=== PATIENT | female | born 1955 | race Caucasian/White ===

== ENCOUNTER → 2024-05-31 | Outpatient (CLI) | payer OTHER ==
[~2024-05-31] MED LIST: AMIO200T68 PO; ASPI-1197 PO; ATOR40TA71 PO; CETI10TA57 PO; CHOL2000 PO; CLOP75TA32 PO; CYAN-106 PO; CYCL-309 PO; DILT30 PO; DOCU-116 PO; FERS325 PO; FURO20TA6 PO; GABA100C PO; GLIM4TAB36 PO; HYDR-4060 PO; LEVO175C2 PO; LOSA100T59 PO; METO25TA6 PO; MONT-39 PO; OMEP20CA12 PO; [UNRECOGNIZED DRUG - OTHER] IH; calcium PO
== END | disposition home or self-care (01) ==
LOC: RAH 10:36
PROVIDERS: ATTEND Chiropractor
DX: J44.9 Chronic obstructive pulmonary disease, unspecified (principal); Z96.612 Presence of left artificial shoulder joint; Z96.611 Presence of right artificial shoulder joint
CPT/HCPCS: 71046